=== PATIENT | male | born 1960 | race Caucasian/White ===

== ENCOUNTER 2023-02-04 09:07 | Outpatient (AMB) | payer BC, SELFPAY ==
--- NOTE | 2023-02-04 09:08 | MHC.OFFWIV ---
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 He had mild nasal congestion also. Initial COVID test negative. He denies ear pain, shortness of breath, nausea vomiting or diarrhea, fever chills, chest pain or discomfort, myalgias or malaise, dizziness or weakness, headache, sore throat, or other significant associated symptoms. [facility] Social History Patient Tobacco Use Status: Never used Tobacco Review of Systems Const All systems reviewed & are unremarkable except as noted in HPI and below Physical Exam Vital Signs: Last Vital Signs Temp 98.0 F 02/04/23 09:09 Pulse 76 02/04/23 09:09 BP 140/80 H 02/04/23 09:09 Pulse Ox 98 02/04/23 09:09 BMI result Body Mass Index 29.7 Const General: cooperative, healthy appearing, comfortable, no acute distress, alert, awake, Physically active and well groomed; No anxious, diaphoretic, ill appearing, intoxicated appearing, poor hygiene or tired appearing Nutritional Appearance: average body habitus Orientation/consciousness: oriented to person Limitations: no limitations HEENT Head: Yes normal to inspection, Yes normocephalic and Yes atraumatic Ears: hearing grossly normal bilaterally, external ears normal, TM's normal bilaterally and EAC's normal General nose exam: Normal external nose present, Normal nares present, No nasal polyps present, Normal nasal mucous membranes and turbinates present, Normal septum present and No nasal discharge present Face and sinus: Yes normal facial exam, Yes sinuses nontender and Yes face symmetric Mouth: Normal oral and palatal mucosa present, lip normal and tongue normal Throat: Yes posterior oropharynx normal, No peritonsillar mass, No postnasal drainage, No uvular edema and No cobblestoning Eyes General: appearance normal, both eyes and all related structures Resp Effort & Inspection: normal respiratory effort, able to speak in complete sentences, no audible wheezes, no cough, no grunting, not labored, no nasal flaring, no retractions and symmetric chest movement Auscultation: clear to auscultation bilaterally, no crackles, no rales, no rhonchi, no wheezes, lung sounds not diminished and No rub present Cardio Rate: regular rate Skin Other: Good color, warm and dry Neuro General: oriented to person Psych Appearance: grossly normal Mental Status: mental status grossly normal Speech and movement: Normal speech and movement present Affect: normal affect Attitude: cooperative Thought process: Normal thought process present Insight: Good insight present (Psych) Judgement: Good judgement present (Psych) Assessment & Plan Assessment & Plan (1) Otitis media: Code(s): H66.90 - Otitis media, unspecified, unspecified ear Qualifiers: Chronicity: acute Laterality: left Otitis media type: other nonsuppurative Recurrence: non-recurrent Qualified Code(s): H65.192 - Other acute nonsuppurative otitis media, left ear Plan: Patient is a 62-year-old male who has been sick for approximately a week, and has severe injection to the left TM. He has apparent upper respiratory infection with left otitis media. I will write him for a course of Augmentin as well as benzonatate Perles for the cough. Pending flu COVID and RSV testing. He can follow up as needed. Orders: Orders SARS-CoV2/FLU/RSV 02/04/23 R05.9 - Cough, unspecified Medications: New amoxicillin-pot clavulanate 875-125 mg 1 tab PO BID 14 tabs 0RF benzonatate 200 mg PO BID-TID PRN 30 caps 0RF cough Coding Level of Care Code New Pt Level 4 (88694) Diagnoses Other non-recurrent acute nonsuppurative otitis media of left ear H65.192 Chronicity: acute Laterality: left Otitis media type: other nonsuppurative Recurrence: non-recurrent
[2023-02-04 09:09] VITALS: BP 140/80; PULSE 76; TEMP 36.7; O2SAT 98; BMI 29.7
== END 2023-02-04 09:26 | disposition home or self-care (01) ==
PROVIDERS: PCP Internal Medicine; Visit Provider Physician Assistant Medical
DX: H65.192 Other acute nonsuppurative otitis media, left ear (principal)
CPT/HCPCS: 99204

== ENCOUNTER 2023-02-04 09:30 | Outpatient (REF) | payer BC, SELFPAY ==
[2023-02-04 11:56] LABS: Influenza A PCR NEGATIVE (Negative); Influenza B PCR NEGATIVE (Negative); Resp Syncy Virus RNA Qual PCR NEGATIVE (Negative); SARS COV2 PCR INHOUSE NEGATIVE (Negative)
== END 2023-02-04 09:31 | disposition home or self-care (01) ==
LOC: HO.LAB 09:30
PROVIDERS: Visit Provider Physician Assistant Medical
DX: Z11.52 Encounter for screening for COVID-19 (principal); Z20.822 Contact with and (suspected) exposure to COVID-19; R05.9 Cough, unspecified
CPT/HCPCS: 0241U

== ENCOUNTER 2023-02-18 09:13 | Outpatient (AMB) | payer BC, SELFPAY ==
--- NOTE | 2023-02-18 09:42 | AM.OFFWIN_ITS ---
Intake Vital Signs 02/18/23 09:47 Weight 218 lb BP 112/58 L Blood Pressure Location Rt brachial Position Sitting Pulse 80 Pulse Source Pulse Oximeter Temp 98.3 F Temp Source Oral Pulse Oximetry (%) 98 Oxygen Delivery Method Room Air Intake Visit Reasons: EST/left ear [id number] Intake Note: Pt was here last week with cough and was placed on antibiotic. Pt c/o of ear blockage x 2 weeks. Patient Tobacco Use Status: Never used Tobacco Allergies No Known Allergies Allergy (Verified 02/18/23 09:46) HPI EST/left ear [id number] HPI Details Patient is a 62-year-old male comes to the walk-in clinic complaining of left ear pain after having had viral syndrome a few weeks ago. He completed a course of Augmentin when his cough was aggravated he was seen here at the walk-in. He states that the cough is improving, but the ear pain is worsening and he feels like it is blocked and full. Denies discharge from the ear, hearing changes, fever chills, dizziness or vertigo, weakness, myalgias or malaise, or other significant associated symptoms. [facility] Social History Patient Tobacco Use Status: Never used Tobacco Review of Systems Const All systems reviewed & are unremarkable except as noted in HPI and below Physical Exam Vital Signs: Last Vital Signs Temp 98.3 F 02/18/23 09:47 Pulse 80 02/18/23 09:47 BP 112/58 L 02/18/23 09:47 Pulse Ox 98 02/18/23 09:47 Oxygen Delivery Method Room Air 02/18/23 09:47 Const General: cooperative, healthy appearing, comfortable, no acute distress, alert, awake, Physically active and well groomed; No anxious, diaphoretic, intoxicated appearing, poor hygiene or tired appearing Nutritional Appearance: average body habitus Limitations: no limitations HEENT Head: Yes normal to inspection, Yes normocephalic and Yes atraumatic Ears: hearing grossly normal bilaterally, external ears normal and TM abnormal (Injected and bloody TM) bulging, wth effusion, erythematous and with fluid behind the TM; not obstructed by cerumen and not perforated General nose exam: Normal external nose present, Normal nares present, No nasal polyps present, Normal nasal mucous membranes and turbinates present, Normal septum present and No nasal discharge present Face and sinus: Yes normal facial exam, Yes sinuses nontender and Yes face symmetric Neck Neck: Yes normal visual inspection, Yes no lymphadenopathy, Yes trachea midline, Yes supple and No anterior neck swelling Resp Effort & Inspection: normal respiratory effort Skin Other: Good color, warm and dry Psych Appearance: grossly normal Mental Status: mental status grossly normal Speech and movement: Normal speech and movement present Affect: normal affect Attitude: cooperative Thought process: Normal thought process present Insight: Good insight present (Psych) Judgement: Good judgement present (Psych) Assessment & Plan Assessment & Plan (1) Otitis media: Code(s): H66.90 - Otitis media, unspecified, unspecified ear Qualifiers: Chronicity: acute Laterality: left Otitis media type: suppurative Recurrence: non-recurrent Spontaneous tympanic membrane rupture: without spontaneous rupture Qualified Code(s): H66.002 - Acute suppurative otitis media without spontaneous rupture of ear drum, left ear Plan: Patient with left otitis media, who completed course of Augmentin when respir atory syndrome was causing aggravated cough. Will start him on 10 day course of cefdinir now at this point. He can follow up if symptoms persist or worsen. Medications: New cefdinir 300 mg PO BID 20 caps 0RF 10 days Coding Level of Care Code Est Pt Level 4 (43827) Diagnoses Non-recurrent acute suppurative otitis media of left ear without spontaneous rupture of tympanic membrane H66.002 Chronicity: acute Laterality: left Otitis media type: suppurative Recurrence: non-recurrent Spontaneous tympanic membrane rupture: without spontaneous rupture
[2023-02-18 09:47] VITALS: BP 112/58; PULSE 80; TEMP 36.8; O2SAT 98
== END 2023-02-18 11:24 | disposition home or self-care (01) ==
PROVIDERS: PCP Internal Medicine; Visit Provider Physician Assistant Medical
DX: H66.002 Acute suppurative otitis media without spontaneous rupture of ear drum, left ear (principal)
CPT/HCPCS: 99214